=== PATIENT | female | born 1950 | race Caucasian/White ===

== ENCOUNTER 2019-02-04 16:07 | Inpatient (IN) | payer MEDICARE, MEDICAID ==
[~2019-02-04] VITALS: Ht 154.9 cm; Wt 67.1 kg
--- NOTE | 2019-02-04 15:24 | NUR ---
ED Nurse Note: pt's brother [phone]
[2019-02-04 15:25] VITALS: BP 105/58
--- NOTE | 2019-02-04 15:25 | NUR ---
ED Nurse Note: pt brought in to ER from doctor's office due to N/V and RUQ pain 12/25. pt aao x4 and ambulatory. skin clean and intact. calm and cooperative. pt is on shoulder boner and in gown. no acute distress noted.
--- NOTE | 2019-02-04 15:39 | Emergency Room Report ---
History of Present Illness General Chief Complaint: Abdominal Pain Source: Patient, Medical Record, EMS Present Illness HPI 68-year-old female presents with sharp abdominal pain that started 1 day prior to arrival, localized to the right lower quadrant no aggravating or alleviating factors, severity is severe, pain has been constant, and vomiting. No diarrhea , no chest pain no shortness of breath, patient presents for evaluation. Allergies: Coded Allergies: No Known Allergies (Unverified , 02/04/19) Patient History Past Medical History: see triage record Now: No Reviewed Nursing Documentation: PMH: Agreed; PSxH: Agreed Nursing Documentation-PMH Past Medical History: No History, Except For Review of Systems All Other Systems: negative except mentioned in HPI Physical Exam Vital Signs Date Time Temp Pulse Resp B/P (MAP) Pulse Ox O2 Delivery O2 Flow Rate FiO2 02/04/19 15:00 101.8 105 20 104/65 (78) 98 Room Air Sp02 EP Interpretation: reviewed, normal General Appearance: alert, moderate distress Head: normocephalic, atraumatic Eyes: bilateral eye PERRL, bilateral eye EOMI ENT: uvula midline, moist mucus membranes Neck: supple, thyroid normal, supple/symm/no masses Respiratory: lungs clear, no respiratory distress, no retraction, no accessory muscle use Cardiovascular #1: normal peripheral pulses, no edema, no gallop, no murmur, tachycardia Gastrointestinal: non tender, tenderness - Lower quadrant pain Musculoskeletal: normal inspection Neurologic: alert, oriented x3 Psychiatric: mood/affect normal Skin: no rash, warm/dry Procedures Critical Care Time Critical Care Time Given the critical condition in which the patient arrived, the patient was immediately assessed by myself and the nurse, and cardiac monitoring initiated due to the potential for rapid decompensation of the patient's clinical condition. During the course of the patient's stay, I spent a considerable amount of time at the bedside performing serial re-evaluations of the patient's hemodynamic and clinical status because of the recognized potential threat to life or limb in this condition. I then had a chance to review not only all of the available current laboratory and radiographic studies obtained today, but I also reviewed old records available to me at the time. Additionally, any ancillary information available including acquisition specialist records were reviewed. Sequential vital signs were obtained. Critical Care time of 34 minutes was performed exclusive of billable procedures. Patient required an resuscitation with 1 L of fluid, patient needed fever control pain control, patient also need a CT scan, patient found to have an ascending urinary tract infection, vitals normalized with interventions in the ED Medical Decision Making Diagnostic Impression: Primary Impression: Pyelonephritis Additional Impressions: Tachycardia Sepsis Qualified Codes: A41.9 - Sepsis, unspecified organism ER Course 68-year-old female presents with fever chills, tachycardia concerning for sepsis , on the differential includes sepsis, pyelonephritis, UTI, diverticulitis, appendicitis Patient found to have right lower quadrant pain, patient was tender to palpation Ceftriaxone was given patient was at risk of deterioration with overwhelming sepsis, patient was resuscitated, patient with pyelonephritis, will admit patient for IV antibiotics, Reevaluation 4:48 PM, patient tachycardia slowly improving Reevaluation 5:30 PM, patient's tachycardia has resolved with fluid administration fever control, and antibiotics Patient was endorsed to Dr. Villeda Laboratory Tests Test 02/04/19 15:40 White Blood Count 10.4 K/UL (4.8-10.8) Red Blood Count 4.04 M/UL (4.20-5.40) L Hemoglobin 12.5 G/DL (12.0-16.0) Hematocrit 36.2 % (37.0-47.0) L Mean Corpuscular Volume 90 FL (80-99) Mean Corpuscular Hemoglobin 30.9 PG (27.0-31.0) Mean Corpuscular Hemoglobin Concent 34.5 G/DL (32.0-36.0) Red Cell Distribution Width 9.9 % (11.6-14.8) L Platelet Count 188 K/UL (150-450) Mean Platelet Volume 6.2 FL (6.5-10.1) L Neutrophils (%) (Auto) 88.3 % (45.0-75.0) H Lymphocytes (%) (Auto) 7.0 % (20.0-45.0) L Monocytes (%) (Auto) 4.3 % (1.0-10.0) Eosinophils (%) (Auto) 0.0 % (0.0-3.0) Basophils (%) (Auto) 0.3 % (0.0-2.0) Urine Color Pale yellow Urine Appearance Cloudy Urine pH 7 (4.5-8.0) Urine Specific [place] 1.005 (1.005-1.035) Urine Protein 2+ (NEGATIVE) H Urine Glucose (UA) Negative (NEGATIVE) Urine Ketones Negative (NEGATIVE) Urine Blood 4+ (NEGATIVE) H Urine Nitrite Positive (NEGATIVE) H Urine Bilirubin Negative (NEGATIVE) Urine Urobilinogen Normal MG/DL (0.0-1.0) Urine Leukocyte Esterase 3+ (NEGATIVE) H Urine RBC Pending Urine WBC Pending Urine Squamous Epithelial Cells Pending Urine Bacteria Pending Sodium Level 136 MMOL/L (136-145) Potassium Level 3.6 MMOL/L (3.5-5.1) Chloride Level 102 MMOL/L (98-107) Carbon Dioxide Level 24 MMOL/L (21-32) Anion Gap 11 mmol/L (5-15) Blood Urea Nitrogen 21 mg/dL (7-18) H Creatinine 0.8 MG/DL (0.55-1.30) Estimate Glomerular Filtration Rate > 60 mL/min (>60) Glucose Level 123 MG/DL (74-106) H Lactic Acid Level 0.90 mmol/L (0.4-2.0) Calcium Level 9.0 MG/DL (8.5-10.1) Total Bilirubin 0.5 MG/DL (0.2-1.0) Aspartate Amino Transferase (AST) 33 U/L (15-37) Alanine Aminotransferase (ALT) 28 U/L (12-78) Alkaline Phosphatase 102 U/L (46-116) Troponin I 0.000 ng/mL (0.000-0.056) Total Protein 6.7 G/DL (6.4-8.2) Albumin 3.9 G/DL (3.4-5.0) Globulin 2.8 g/dL Albumin/Globulin Ratio 1.4 (1.0-2.7) Lipase 112 U/L (73-393) EKG Diagnostic Results EKG Time: 15:25 EP Interpretation: Sinus tachycardia, rate 110, QTc 400, no acute ST elevations , normal axis Rate: tachycardiac Rhythm: other - Sinus tachycardia ST Segments: no acute changes Rhythm Strip Diag. Results Rhythm Strip Time: 16:01 EP Interpretation: yes Rate: 111 Rhythm: other - Tachycardia, no PVCs no ectopy Chest X-Ray Diagnostic Results Chest X-Ray Diagnostic Results : Chest X-Ray Ordered: Yes # of Views/Limited/Complete: 1 View Indication: Other - preop EP Interpretation: Yes Interpretation: no consolidation, no effusion, no pneumothorax, no acute cardiopulmonary disease Impression: No acute disease Electronically Signed by: Jony Roper MD CT/MRI/US Diagnostic Results CT/MRI/US Diagnostic Results : Impression Procedure: CT Abdomen Pelvis w/Contrast Clinical Indication: . Abdominal pain in the right lower quadrant started one day prior to arrival, severe Technique: No oral contrast utilized, per emergency room physician request IV administration nonionic contrast. Venous phase spiral acquisition obtained through the abdomen and pelvis. Multiplanar reconstructions were generated. Total dose length product 570.53 mGycm. CTDIvol(s) 12.33 mGy. Dose reduction achieved using automated exposure control Comparison: none Findings: Lack of enteric contrast limits assessment of the GI tract. The appendix is normal. There is no evidence of diverticulosis or diverticulitis. No small bowel distention. No free or loculated intraperitoneal gas or fluid is evident. The distal esophagus, stomach, duodenum are unremarkable. There is slightly heterogeneous contrast opacification of the upper pole of the right kidney. In addition, there is slight enhancement of the urothelium of the right renal pelvis and right ureter. The left kidney demonstrates a few low-attenuation lesions which are too small to characterize. No renal or ureteral calculi. The bladder is unremarkable. The liver, gallbladder, bile ducts, pancreas, spleen, adrenals are unremarkable. No retroperitoneal or mesenteric mass or adenopathy. No pelvic mass or adenopathy. The uterus is not visualized, presumed surgically absent. The bones are unremarkable. The included lung bases demonstrate posterior dependent atelectatic changes Impression: Somewhat striking enhancement of the right renal pelvic and proximal ureteral urothelium, suspicious for pyelitis/ureteritis. Slightly heterogeneous contrast opacification of the upper pole of the right kidney indicate a component of focal nephritis as well. Correlate with clinical and laboratory findings. Limited assessment of the GI tract, due to lack of enteric contrast administration. No gross acute GI pathology Evidence of prior hysterectomy Incidental findings as noted The CT scanner at [facility] is accredited by the [employer] and the scans are performed using protocols designed to limit radiation exposure to as low as reasonably achievable to attain images of sufficient resolution adequate for diagnostic evaluation. Last Vital Signs Date Time Temp Pulse Resp B/P (MAP) Pulse Ox O2 Delivery O2 Flow Rate FiO2 02/04/19 15:25 110 20 Room Air 02/04/19 15:25 101.8 105/58 98 Disposition: ADMITTED INPATIENT Condition: Stable Jony Roper MD Feb 04, 2019 15:39
--- NOTE | 2019-02-04 15:48 | NUR ---
ED Nurse Note: x-ray at bedside.
[~2019-02-04 16:07] MED LIST: Isovue-300 100ml vial INJ PRN; Ketorolac 30mg Inj IV ONE; LIVALO4 MG PO; MOBIC7.5 MG ORAL; Morphine Sulfate 4mg/ml Inj (IV USE ONLY) IVP ONE; XANAX0.5 MG ORAL
[2019-02-04] MEDS ORDERED: Piperacillin/Tazobactam 4.5 GM in NS 110 ML IVPB ONE (16:15)
[2019-02-04 16:16] LABS: BASOPHILS % (AUTO) 0.3 % (0.0-2.0); HEMATOCRIT 36.2 % (37.0-47.0); HEMOGLOBIN 12.5 G/DL (12.0-16.0); MEAN CORPUSCULAR VOLUME 90 FL (80-99); MONOCYTES % (AUTO) 4.3 % (1.0-10.0); NEUTROPHILS % (AUTO) 88.3 % (45.0-75.0); PLATELET COUNT 188 K/UL (150-450); RED BLOOD COUNT 4.04 M/UL (4.20-5.40); RED CELL DISTRIBUTION WIDTH 9.9 % (11.6-14.8); WHITE BLOOD COUNT 10.4 K/UL (4.8-10.8)
[2019-02-04 16:26] LABS: ANION GAP 11 mmol/L (5-15); BLOOD UREA NITROGEN 21 mg/dL (7-18); CARBON DIOXIDE 24 MMOL/L (21-32); CHLORIDE 102 MMOL/L (98-107); CREATININE 0.8 MG/DL (0.55-1.30); POTASSIUM 3.6 MMOL/L (3.5-5.1); SODIUM 136 MMOL/L (136-145)
[2019-02-04 16:29] LABS: ALANINE AMINOTRANSFERASE 28 U/L (12-78); ALBUMIN 3.9 G/DL (3.4-5.0); ALBUMIN/GLOBULIN RATIO 1.4 (1.0-2.7); ALKALINE PHOSPHATASE 102 U/L (46-116); ASPARTATE AMINO TRANSFERASE 33 U/L (15-37); BILIRUBIN,TOTAL 0.5 MG/DL (0.2-1.0)
--- NOTE | 2019-02-04 16:39 | NUR ---
ED Nurse Note: pt went down for CT scan in stable condition.
--- NOTE | 2019-02-04 16:39 | Diagnostic Imaging Report ---
Indication: Chest Technique: One view of the chest Comparison: none Findings: There is some left suprahilar atelectasis or scarring and possibly some focal patchy consolidation. The lungs and pleural spaces are otherwise clear. The heart size is normal Impression: Left suprahilar atelectasis, scarring, and/or focal consolidation
--- NOTE | 2019-02-04 16:54 | NUR ---
ED Nurse Note: pt came back from CT scan in stable condition.
--- NOTE | 2019-02-04 17:13 | Diagnostic Imaging Report ---
Clinical Indication: . Abdominal pain in the right lower quadrant started one day prior to arrival, severe Technique: No oral contrast utilized, per emergency room physician request IV administration nonionic contrast. Venous phase spiral acquisition obtained through the abdomen and pelvis. Multiplanar reconstructions were generated. Total dose length product 570.53 mGycm. CTDIvol(s) 12.33 mGy. Dose reduction achieved using automated exposure control Comparison: none Findings: Lack of enteric contrast limits assessment of the GI tract. The appendix is normal. There is no evidence of diverticulosis or diverticulitis. No small bowel distention. No free or loculated intraperitoneal gas or fluid is evident. The distal esophagus, stomach, duodenum are unremarkable. There is slightly heterogeneous contrast opacification of the upper pole of the right kidney. In addition, there is slight enhancement of the urothelium of the right renal pelvis and right ureter. The left kidney demonstrates a few low-attenuation lesions which are too small to characterize. No renal or ureteral calculi. The bladder is unremarkable. The liver, gallbladder, bile ducts, pancreas, spleen, adrenals are unremarkable. No retroperitoneal or mesenteric mass or adenopathy. No pelvic mass or adenopathy. The uterus is not visualized, presumed surgically absent. The bones are unremarkable. The included lung bases demonstrate posterior dependent atelectatic changes Impression: Somewhat striking enhancement of the right renal pelvic and proximal ureteral urothelium, suspicious for pyelitis/ureteritis. Slightly heterogeneous contrast opacification of the upper pole of the right kidney indicate a component of focal nephritis as well. Correlate with clinical and laboratory findings. Limited assessment of the GI tract, due to lack of enteric contrast administration. No gross acute GI pathology Evidence of prior hysterectomy Incidental findings as noted The CT scanner at [facility] is accredited by the [employer] and the scans are performed using protocols designed to limit radiation exposure to as low as reasonably achievable to attain images of sufficient resolution adequate for diagnostic evaluation.
[2019-02-04] MEDS ORDERED: cefTRIAXone 1 GM in NS 55 ML IVPB ONE (17:30)
[2019-02-04 17:42] LABS: APPEARANCE,URINE CLOUDY; BILIRUBIN, URINE NEGATIVE (NEGATIVE); COLOR,URINE PALE YELLOW; GLUCOSE, URINE (UA) NEGATIVE (NEGATIVE); KETONES,URINE NEGATIVE (NEGATIVE); LEUKOCYTE ESTERASE ,URINE 3+ (NEGATIVE); NITRITE,URINE POSITIVE (NEGATIVE); PH,URINE 7 (4.5-8.0); PROTEIN,URINE 2+ (NEGATIVE); UROBILINOGEN,URINE NORMAL MG/DL (0.0-1.0)
--- NOTE | 2019-02-04 17:45 | NUR ---
ED Nurse Note: Report given to OPAL Kent. Addendum: 02/04/19 at 1750 by [email or web address] ED Nurse Note: Report given to OPAL Pelaez.
[2019-02-04 17:54] VITALS: BP 112/65
--- NOTE | 2019-02-04 18:10 | NUR ---
ED Nurse Note: pt left unit with 1 instructor adjunct surgical technician in stable condition.
[2019-02-04] MEDS ORDERED: HYDROcodone/Acetamin 5/325 tab ORAL PRN (18:30)
--- NOTE | 2019-02-04 18:34 | History & Physical ---
History of Present Illness General Date patient seen: Feb 04, 2019 Time patient seen: 05:45 Reason for Hospitalization: Abdominal Pain Present Illness Allergies: Coded Allergies: No Known Allergies (Unverified , 02/04/19) Medication History Scheduled Alprazolam* (Xanax*), 0.5 MG ORAL DAILY, (Reported) Meloxicam* (Mobic*), 7.5 MG ORAL DAILY, (Reported) Pitavastatin Calcium (Livalo), 4 MG PO HS, (Reported) Patient History Healthcare decision maker Resuscitation status Advanced Directive on File Review of Systems Review of Symptoms General ROS: no weight loss or fever Psychological ROS: no depression or mood changes, no memory loss Ophthalmic ROS: no visual changes or eye irritation ENT ROS: no nasal congestion, hearing loss, dizziness Allergy and Immunology ROS: no allergic symptoms or urticaria Hematological and Lymphatic ROS: no swollen glands, unusual bleeding or bruising Endocrine ROS: no polyuria, polydipsia, weight changes, temperature intolerance Respiratory ROS: no cough, shortness of breath, or wheezing Cardiovascular ROS: no chest pain or dyspnea on exertion Gastrointestinal ROS: denies abdominal pain, bright red blood in stool. Musculoskeletal ROS: no myalgias or arthralgias Neurological ROS: no TIA or stroke symptoms Dermatological ROS: no new or changing skin lesions, rashes or pruritis Physical Exam Physical Exam General appearance: alert, cooperative, no distress, appears stated age Head: Normocephalic, without obvious abnormality, atraumatic Eyes: conjunctivae/corneas clear. PERRL, EOM's intact. Fundi benign Throat: Lips, mucosa, and tongue normal. Teeth and gums normal Neck: supple, symmetrical, trachea midline, no adenopathy, thyroid: not enlarged, symmetric, no tenderness/mass/nodules, no carotid bruit and no JVD Lungs: clear to auscultation bilaterally Heart: regular rate and rhythm, S1, S2 normal, no murmur, click, rub or gallop Abdomen: soft, non-tender. Bowel sounds normal. No masses, no organomegaly Extremities: extremities normal, atraumatic, no cyanosis or edema Pulses: 2+ and symmetric Skin: Skin color, texture, turgor normal. No rashes or lesions Neurologic: Grossly normal Last 24 Hour Vital Signs Date Time Temp Pulse Resp B/P (MAP) Pulse Ox O2 Delivery O2 Flow Rate FiO2 02/04/19 17:54 100.3 103 20 112/65 98 Room Air 02/04/19 16:16 101.8 02/04/19 16:16 101.8 02/04/19 15:25 110 20 Room Air 02/04/19 15:25 101.8 110 20 105/58 98 Room Air 02/04/19 15:00 101.8 105 20 104/65 (78) 98 Room Air Laboratory Tests Test 02/04/19 15:40 White Blood Count 10.4 K/UL (4.8-10.8) Red Blood Count 4.04 M/UL (4.20-5.40) L Hemoglobin 12.5 G/DL (12.0-16.0) Hematocrit 36.2 % (37.0-47.0) L Mean Corpuscular Volume 90 FL (80-99) Mean Corpuscular Hemoglobin 30.9 PG (27.0-31.0) Mean Corpuscular Hemoglobin Concent 34.5 G/DL (32.0-36.0) Red Cell Distribution Width 9.9 % (11.6-14.8) L Platelet Count 188 K/UL (150-450) Mean Platelet Volume 6.2 FL (6.5-10.1) L Neutrophils (%) (Auto) 88.3 % (45.0-75.0) H Lymphocytes (%) (Auto) 7.0 % (20.0-45.0) L Monocytes (%) (Auto) 4.3 % (1.0-10.0) Eosinophils (%) (Auto) 0.0 % (0.0-3.0) Basophils (%) (Auto) 0.3 % (0.0-2.0) Urine Color Pale yellow Urine Appearance Cloudy Urine pH 7 (4.5-8.0) Urine Specific [place] 1.005 (1.005-1.035) Urine Protein 2+ (NEGATIVE) H Urine Glucose (UA) Negative (NEGATIVE) Urine Ketones Negative (NEGATIVE) Urine Blood 4+ (NEGATIVE) H Urine Nitrite Positive (NEGATIVE) H Urine Bilirubin Negative (NEGATIVE) Urine Urobilinogen Normal MG/DL (0.0-1.0) Urine Leukocyte Esterase 3+ (NEGATIVE) H Urine RBC 2-4 /HPF (0 - 2) H Urine WBC Tntc /HPF (0 - 2) H Urine Squamous Epithelial Cells Few /LPF (NONE/OCC) Urine Bacteria Many /HPF (NONE) H Sodium Level 136 MMOL/L (136-145) Potassium Level 3.6 MMOL/L (3.5-5.1) Chloride Level 102 MMOL/L (98-107) Carbon Dioxide Level 24 MMOL/L (21-32) Anion Gap 11 mmol/L (5-15) Blood Urea Nitrogen 21 mg/dL (7-18) H Creatinine 0.8 MG/DL (0.55-1.30) Estimat Glomerular Filtration Rate > 60 mL/min (>60) Glucose Level 123 MG/DL (74-106) H Lactic Acid Level 0.90 mmol/L (0.4-2.0) Calcium Level 9.0 MG/DL (8.5-10.1) Total Bilirubin 0.5 MG/DL (0.2-1.0) Aspartate Amino Transf (AST/SGOT) 33 U/L (15-37) Alanine Aminotransferase (ALT/SGPT) 28 U/L (12-78) Alkaline Phosphatase 102 U/L (46-116) Troponin I 0.000 ng/mL (0.000-0.056) Total Protein 6.7 G/DL (6.4-8.2) Albumin 3.9 G/DL (3.4-5.0) Globulin 2.8 g/dL Albumin/Globulin Ratio 1.4 (1.0-2.7) Lipase 112 U/L (73-393) Height (Feet): 5 Height (Inches): 1.00 Weight (Pounds): 150 Medications Current Medications Medications (Trade) Dose Ordered Sig/Cristy Route PRN Reason Start Time Stop Time Status Last Admin Dose Admin Acetaminophen (Tylenol) 650 mg Q6H PRN ORAL Mild Pain/Temp > 100.5 02/04/19 18:30 03/06/19 18:29 UNV Acetaminophen/ Hydrocodone Bitart ([place] 5/325) 1 tab Q6H PRN ORAL For severe Pain 02/04/19 18:30 02/11/19 18:29 UNV Ceftriaxone Sodium 1 gm/ Dextrose 55 ml @ 110 mls/hr Q24H IVPB 02/04/19 18:30 02/11/19 18:29 UNV Iopamidol (Isovue-300 100ml) 100 ml NOW PRN INJ Radiology Procedure 02/04/19 15:30 Ondansetron HCl (Zofran) 4 mg Q6H PRN IVP Nausea & Vomiting 02/04/19 18:30 03/06/19 18:29 UNV Sodium Chloride 1,000 ml @ 50 mls/hr Q20H IV 02/04/19 18:30 03/06/19 18:29 UNV Sodium Chloride 1,000 ml @ 100 mls/hr Q10H ONCE IV 02/04/19 15:21 02/05/19 01:20 02/04/19 15:46 Assessment/Plan Assessment/Plan: Full H&P was dictated. [facility] Hospital declaration INPATIENT level of care is warranted for this patient because patient is a 89 year old with who presents with suspicion of . I have a high level of concern because . Patient is at high risk for . Plan of care/treatment include . Patient care is expected to be greater than 2 midnights. OBSERVATION level of care is warranted for this patient. Patient is a 89 year old with who presents with . Patient will be admitted for 1 midnight, but if additional night(s) is/are necessary, patient will be converted to inpatient status for the entire hospitalization Disposition: Once the patient is stable to leave the hospital, I anticipate the patient will likely be discharged to the following environment: Estimated discharge date: I spent 70 minutes on this patient's case, and minutes was dedicated to counseling and/or care coordination. MIPS (Merit-based Incentive Payment System) Applicable CPT: 94803, 47093 CHECK ALL THAT ARE MET: Measure #5 (CHF): All ages. Prescribe BILL/ARB upon discharge for patients with left ventricular systolic dysfunction. If not, the reason is clearly documented in the medical chart. Measure #8 (CHF): All ages. Prescribe a beta ramon upon discharge for patients with left ventricular systolic dysfunction. If not, the reason is clearly documented in the medical chart. Measure #47 Advance care plan or surrogate decision maker documented in the medical record. Measure #130 The provider has documented, updated, or reviewed the patients current medication list and has documented it in the patients note. Measure #374 (All): Send report to referring provider. Measure #407(Sepsis due to MSSA bacteremia): Age 18+ Patient treated with a beta-lactam antibiotic (Nafcillin, Oxacillin or Cefazolin) as definitive therapy. MEDICAL COMPLEXITY High complexity medical decision making (need 2/3 categories) Problem - need 4 points Acute/new problem with new plan for workup (4 points, 1 max) Acute/new problem without additional workup (3 points, 1 max) Unstable chronic problem actively being managed (2 point each, 2 max) Stable chronic problem actively being managed (1 point each, 2 max) Self-limited/transient process (constipation, muscle ache, etc) (1 point each , 2 max) Data - need 4 points Reviewed labs/imaging studies (1 points, 2 max) Independent review of imaging (EKG, xrays, etc) (2 points, 2 max) Discussed case with consult/other MD/RN (2 points, 2 max) High Risk - qualify if have one of the following: Severe exacerbation of acute problem, acute mental status change, IV narcotics , monitoring drug levels (vancomycin, INR, tacrolimus etc) Lucille Cantor MD Feb 04, 2019 18:34
--- NOTE | 2019-02-04 18:40 | NUR ---
NURSE NOTES: NOTED PATIENT IN ROOM FROM ER DEPT. NO ER EMPLOYEE ON FLOOR TO HANDOFF PATIENT. PT. IN BED. AOX4. BELONGINGS LIST VERIFIED WITH PATIENT AND TOWBOAT PILOT. PATIENT DENIES PAIN/ ORIENTED TO ROOM. BED IN LOW AND LOCKED POSITION. CALL LIGHT WITHIN REACH.
--- NOTE | 2019-02-04 19:40 | NUR ---
HAND-OFF: Report given to MACHELLE AVILEZ RN.
--- NOTE | 2019-02-04 19:41 | NUR ---
NURSE NOTES: Received report & pt from OPAL Pelaez. Pt lying in bed, a&ox4, in room air. No s/s of acute distress & no c/o pain at this time. MD already put in admission orders per AM shift nurse. Skin intact. IV site intact & S/L'd. Bed in lowest position, call light within reach. Will continue to monitor.
[2019-02-04 20:00] VITALS: BP 93/59
--- NOTE | 2019-02-04 20:00 | History and Physical Report ---
DATE OF ADMISSION: 02/04/2019 CHIEF COMPLAINT: Abdominal pain with nausea and vomiting. HISTORY OF PRESENT ILLNESS: This is a 68-year-old female with complaint of severe right-sided abdominal pain with epigastric pain, nausea, and vomiting for the past 1 or 2 days. The patient also has been having high fever as well. The patient was seen in my office and automotive porter was called in to bring the patient in for inpatient evaluation. In the emergency room, the patient was noticed to have a fever of 101.8 and her workup showed CT was consistent with possible pyelonephritis. UA was also showed nitrite positive. The patient was also tachycardic on admission on evaluation in the emergency room. The patient received IV fluids and Rocephin with pain medication, morphine while in the emergency room. PAST MEDICAL HISTORY: Includes history of hyperlipidemia, chronic low back pain with lumbar disk disease, cervical disk disease, history of hyperthyroidism, currently euthyroid, and history of anxiety. PAST SURGICAL HISTORY: Total abdominal hysterectomy. FAMILY HISTORY: Mother with Alzheimer disease. SOCIAL HISTORY: No smoking. No alcohol use. No IV drug use. ALLERGIES: No known drug allergies. MEDICATIONS: She is on Livalo 4 mg at bedtime, Mobic 7.5 mg daily p.r.n., and Xanax 0.5 daily p.r.n. REVIEW OF SYSTEMS: Negative except for HPI. PHYSICAL EXAMINATION: VITAL SIGNS: Temperature 101.8, pulse 105, respirations 20, blood pressure 104/65, pulse ox 98% on room air. GENERAL APPEARANCE: In distress with abdominal pain and slightly tachycardic. HEENT: Normocephalic and normochromic. Extraocular muscles intact. Throat is clear. LUNGS: Clear to auscultation bilaterally. CARDIOVASCULAR: Regular rhythm, but tachycardic. No murmur. No gallop. ABDOMEN: Soft. Positive tenderness on the suprapubic area and right lower quadrant. Negative guarding. No rebound. Positive bowel sounds. EXTREMITIES: No edema, cyanosis, or clubbing. NEUROLOGIC: Respond to commands. No gross motor or sensory deficits. LABORATORY AND DIAGNOSTIC DATA: Include WBC 10.4, hemoglobin 12.5, hematocrit 36.2, platelet count 188, MCV 90, neutrophils 88, lymphocytes 7. Sodium 136, potassium 3.6, chloride 102, bicarbonate 24, BUN 21, creatinine 0.8, glucose 123. Lactic acid is 0.9. Calcium is 9. Total bilirubin 0.5, AST 33, ALT 28, alkaline phosphatase 102. Troponin 0. Albumin is 3.9. Lipase 112. UA showed positive nitrate, +4 blood, +2 protein, urine rbc 2 to 4, urine wbc too many to count, epithelial cells few, urine bacteria is many. IMAGING: CT of the abdomen and pelvis showed right renal pelvic and proximal urethral urothelium suspicious for pyelitis and urethritis and then slightly heterogeneous contrast opacification of the upper pole of the right kidney, possible focal nephritis and evidence of prior hysterectomy. Chest x-ray showed left suprahilar atelectasis. IMPRESSION: 1. Pyelonephritis. We will continue Rocephin 1 g IV daily and follow urine culture. 2. Questionable sepsis. We will continue the IV antibiotic and monitor the patient, but sepsis is less likely. Follow blood cultures. The patient will be admitted for minimum of 2-night stay for IV antibiotic and we will follow the urine culture. Lucille Cantor M.D. DR: SHANE JOB#: [id number] CC: [facility]
[2019-02-05] VITALS: BP 95/60
[2019-02-05 04:00] VITALS: BP 90/54
[2019-02-05 06:21] LABS: BASOPHILS % (AUTO) 0.4 % (0.0-2.0); EOSINOPHILS % (AUTO) 0.6 % (0.0-3.0); HEMATOCRIT 33.6 % (37.0-47.0); HEMOGLOBIN 11.2 G/DL (12.0-16.0); LYMPHOCYTES % (AUTO) 20.4 % (20.0-45.0); MEAN CORPUSCULAR VOLUME 94 FL (80-99); MONOCYTES % (AUTO) 7.5 % (1.0-10.0); NEUTROPHILS % (AUTO) 71.1 % (45.0-75.0); PLATELET COUNT 172 K/UL (150-450); RED BLOOD COUNT 3.57 M/UL (4.20-5.40); RED CELL DISTRIBUTION WIDTH 10.6 % (11.6-14.8); WHITE BLOOD COUNT 7.8 K/UL (4.8-10.8)
[2019-02-05 06:51] LABS: ANION GAP 7 mmol/L (5-15); BLOOD UREA NITROGEN 17 mg/dL (7-18); CALCIUM 8.8 MG/DL (8.5-10.1); CARBON DIOXIDE 26 MMOL/L (21-32); CHLORIDE 106 MMOL/L (98-107); CREATININE 0.9 MG/DL (0.55-1.30); POTASSIUM 3.9 MMOL/L (3.5-5.1); SODIUM 139 MMOL/L (136-145)
--- NOTE | 2019-02-05 07:30 | NUR ---
HAND-OFF: Report given to OPAL Gan. Pt in stable condition. Rounds done.
--- NOTE | 2019-02-05 07:55 | NUR ---
NURSE NOTES: Patient received in stable condition, resting in bed, eating breakfast. Alert and oriented x4, responds appropriately. Breathing even and unlabored on room air. Denies pain at this time. IV site on right arm patent and intact, with fluids running at 50cc/hr. Bed locked in lowest position, call light placed within reach. Will continue to monitor.
[2019-02-05 08:00] VITALS: BP 91/49
--- NOTE | 2019-02-05 09:02 | General Progress Note ---
Assessment/Plan Status: stable Assessment/Plan: 1. Pyelonephritis - improving. cont IV Rocephin. D/C IVF. 2. Anxiety and Insomnia- cont xanax 0.5 mg one po qhs prn. 3. Hyperlipidemia - will restart home med after discharge. 4. Questionable Sepsis - Doing better and sepsis unlikly. Subjective Date patient seen: Feb 05, 2019 Time patient seen: 08:45 Constitutional: Reports: no symptoms HEENT: Reports: no symptoms Cardiovascular: Reports: no symptoms Respiratory: Reports: no symptoms Gastrointestinal/Abdominal: Reports: no symptoms Genitourinary: Reports: burning Neurologic/Psychiatric: Reports: no symptoms Endocrine: Reports: no symptoms Hematologic/Lymphatic: Reports: no symptoms Allergies: Coded Allergies: No Known Allergies (Unverified , 02/04/19) Subjective This morning she is better. no fever or chills. no sob or chest pain. No nausea or vomiting. she still has slight dysuria. Objective Last 24 Hour Vital Signs Date Time Temp Pulse Resp B/P (MAP) Pulse Ox O2 Delivery O2 Flow Rate FiO2 02/05/19 08:00 97.5 85 18 91/49 (63) 97 02/05/19 04:00 97.8 78 16 90/54 (66) 96 02/05/19 00:00 97.9 97 17 95/60 (72) 97 02/04/19 20:00 Room Air 02/04/19 20:00 97.6 96 18 93/59 (70) 97 02/04/19 18:10 100.3 103 20 112/65 98 Room Air 02/04/19 17:54 100.3 103 20 112/65 98 Room Air 02/04/19 16:16 101.8 02/04/19 16:16 101.8 02/04/19 15:25 110 20 Room Air 02/04/19 15:25 101.8 110 20 105/58 98 Room Air 02/04/19 15:00 101.8 105 20 104/65 (78) 98 Room Air Intake and Output 02/04/19 02/05/19 18:59 06:59 Intake Total 365 ml 740 ml Balance 365 ml 740 ml Intake Oral 0 ml 240 ml IV Total 365 ml 500 ml # Voids 1 Laboratory Tests 02/04/19 15:40: White Blood Count 10.4, Red Blood Count 4.04L, Hemoglobin 12.5, Hematocrit 36.2L , Mean Corpuscular Volume 90, Mean Corpuscular Hemoglobin 30.9, Mean Corpuscular Hemoglobin Concent 34.5, Red Cell Distribution Width 9.9L, Platelet Count 188, Mean Platelet Volume 6.2L, Neutrophils (%) (Auto) 88.3H, Lymphocytes (%) (Auto) 7.0L, Monocytes (%) (Auto) 4.3, Eosinophils (%) (Auto) 0.0, Basophils (%) (Auto) 0.3, Urine Color Pale yellow, Urine Appearance Cloudy, Urine pH 7, Urine Specific [place] 1.005, Urine Protein 2+H, Urine Glucose (UA) Negative, Urine Ketones Negative, Urine Blood 4+H, Urine Nitrite PositiveH, Urine Bilirubin Negative, Urine Urobilinogen Normal, Urine Leukocyte Esterase 3+ H, Urine RBC 2-4H, Urine WBC TntcH, Urine Squamous Epithelial Cells Few, Urine Bacteria ManyH, Sodium Level 136, Potassium Level 3.6, Chloride Level 102, Carbon Dioxide Level 24, Anion Gap 11, Blood Urea Nitrogen 21H, Creatinine 0.8, Estimat Glomerular Filtration Rate > 60, Glucose Level 123H, Lactic Acid Level 0.90, Calcium Level 9.0, Total Bilirubin 0.5, Aspartate Amino Transf (AST/SGOT) 33, Alanine Aminotransferase (ALT/SGPT) 28, Alkaline Phosphatase 102, Troponin I 0.000, Total Protein 6.7, Albumin 3.9, Globulin 2.8, Albumin/Globulin Ratio 1.4, Lipase 112 02/05/19 05:15: White Blood Count 7.8, Red Blood Count 3.57L, Hemoglobin 11.2L, Hematocrit 33.6L , Mean Corpuscular Volume 94, Mean Corpuscular Hemoglobin 31.3H, Mean Corpuscular Hemoglobin Concent 33.3, Red Cell Distribution Width 10.6L, Platelet Count 172, Mean Platelet Volume 6.2L, Neutrophils (%) (Auto) 71.1, Lymphocytes (%) (Auto) 20.4, Monocytes (%) (Auto) 7.5, Eosinophils (%) (Auto) 0.6, Basophils (%) (Auto) 0.4, Sodium Level 139, Potassium Level 3.9, Chloride Level 106, Carbon Dioxide Level 26, Anion Gap 7, Blood Urea Nitrogen 17, Creatinine 0.9, Estimat Glomerular Filtration Rate > 60, Glucose Level 96, Calcium Level 8.8 Height (Feet): 5 Height (Inches): 1.00 Weight (Pounds): 148 General Appearance: no apparent distress, alert EENT: normal ENT inspection Neck: non-tender, supple Cardiovascular: normal rate, regular rhythm Respiratory/Chest: chest wall non-tender, lungs clear, normal breath sounds Abdomen: normal bowel sounds, non tender, soft Extremities: normal range of motion, non-tender Edema: no edema noted Arm (L), no edema noted Arm (R), no edema noted Leg (L), no edema noted Leg (R), no edema noted Pedal (L), no edema noted Pedal (R), no edema noted Generalized Neurologic: alert, oriented x 3, responsive Skin: warm/dry Lymphatic: normal anterior cervical (L), normal anterior cervical (R), normal posterior cervical (L), normal posterior cervical (R), normal submandibular (L) , normal submandibular (R), normal supraclavicular (L), normal supraclavicular ( R), normal axillary (L), normal axillary (R), normal inguinal (L), normal inguinal (R), normal other Lucille Cantor MD Feb 05, 2019 09:02
[2019-02-05 12:00] VITALS: BP 94/52
--- NOTE | 2019-02-05 12:06 | NUR ---
CASE MANAGEMENT: INITIAL REVIEW 68 YO F LUCIANO FROM DRs OFFICE TO ED CC: ABD PAIN AND BLOODY EMESIS. PMHx: prior hysterectomy SI:ABD PAIN. T 101.8 HR 105 RR 20 B/P 104/65 SATS 98% ON RA BUN 21 GLU 123 IS: ZOFRAN IV X1 PEPCID IV X1 NS BOLUS X1 MORPHINE IV X1 CT ABD Impression: Somewhat striking enhancement of the right renal pelvic and proximal ureteral urothelium, suspicious for pyelitis/ureteritis. Slightly heterogeneous contrast opacification of the upper pole of the right kidney indicate a component of focal nephritis as well PATIENT ADMITTED TO MED/SURG 02/04/2019 @ 1332 DCP: PATIENT TO BE DISCHARGED TO HOME ONCE MEDICALLY CLEARED. PLAN OF CARE: Addendum: 02/05/19 at 1628 by Minna Landrum CM [employer]
[2019-02-05] MEDS ORDERED: Lactulose 20gm/30ml UDC ORAL PRN (12:45)
[2019-02-05] MEDS ORDERED: traMADol 50mg tab ORAL PRN ×2 (15:10→15:15)
[2019-02-05 16:00] VITALS: BP 99/64
[2019-02-05] MEDS ORDERED: cefTRIAXone 1 GM in D5W 55 ML IVPB SCH (17:30)
--- NOTE | 2019-02-05 19:30 | NUR ---
NURSE NOTES: Received report & pt from OPAL Gan. Pt lying in bed, a&ox4, in room air. No s/s of acute distress & no c/o pain at this time. Skin intact. IV site intact. Bed in lowest position, call light within reach. Will continue to monitor.
--- NOTE | 2019-02-05 19:35 | NUR ---
HAND-OFF: Report given to Abdirashid JOSEPH.
[2019-02-05 20:00] VITALS: BP 123/66
[2019-02-05] MEDS: ALPRAZolam 0.5mg tab ORAL PRN (21:05)
[2019-02-06 04:00] VITALS: BP 93/50
[2019-02-06 06:42] LABS: EOSINOPHILS % (AUTO) 2.1 % (0.0-3.0); HEMATOCRIT 33.7 % (37.0-47.0); HEMOGLOBIN 10.8 G/DL (12.0-16.0); LYMPHOCYTES % (AUTO) 27.7 % (20.0-45.0); MEAN CORPUSCULAR VOLUME 95 FL (80-99); MONOCYTES % (AUTO) 10.4 % (1.0-10.0); NEUTROPHILS % (AUTO) 58.7 % (45.0-75.0); PLATELET COUNT 160 K/UL (150-450); RED BLOOD COUNT 3.56 M/UL (4.20-5.40); RED CELL DISTRIBUTION WIDTH 10.7 % (11.6-14.8); WHITE BLOOD COUNT 4.8 K/UL (4.8-10.8)
[2019-02-06 06:52] LABS: ANION GAP 8 mmol/L (5-15); BLOOD UREA NITROGEN 15 mg/dL (7-18); CALCIUM 8.7 MG/DL (8.5-10.1); CARBON DIOXIDE 24 MMOL/L (21-32); CHLORIDE 112 MMOL/L (98-107); CREATININE 0.8 MG/DL (0.55-1.30); POTASSIUM 3.8 MMOL/L (3.5-5.1); SODIUM 144 MMOL/L (136-145)
--- NOTE | 2019-02-06 07:26 | NUR ---
HAND-OFF: Report given to Charge nurseMila. Trammell in stable condition. SBAR copy given to charge nurse.
--- NOTE | 2019-02-06 07:30 | NUR ---
NURSE NOTES: Written report received from Alana JOSEPH. Rounds made. Patient resting in semi-fowlers position, in bed. Alert, oriented x4 calm. IVF (NS at 50 ml/hr) infusing to RAC, site asymptomatic. No distress on RA. No NV, denies need for pain medication. Call light in reach, bed in lowest position, will continue to monitor.
[2019-02-06 08:00] VITALS: BP 98/53
--- NOTE | 2019-02-06 09:08 | General Progress Note ---
Assessment/Plan Status: stable Assessment/Plan: 1. Pyelonephritis - improving. cont IV Rocephin and IVF for now. 2. Anxiety and Insomnia- cont xanax 0.5 mg one po qhs prn. 3. Hyperlipidemia - will restart home med after discharge. 4. Questionable Sepsis - Doing better and sepsis unlikly. 5. Nausea and vomiting 2nd to pyelonephritis - cont abx and zofran. 6. Headache and dizziness - will do open MRI as outpatient b/c patient states she can't do closed MRI. Subjective Date patient seen: Feb 06, 2019 Time patient seen: 08:40 Constitutional: Reports: no symptoms HEENT: Reports: no symptoms Cardiovascular: Reports: no symptoms Respiratory: Reports: no symptoms Gastrointestinal/Abdominal: Reports: nausea Genitourinary: Reports: no symptoms Neurologic/Psychiatric: Reports: no symptoms Endocrine: Reports: no symptoms Hematologic/Lymphatic: Reports: no symptoms Allergies: Coded Allergies: No Known Allergies (Unverified , 02/04/19) Subjective This morning she is better. no fever or chills. she had nausea and vomiting yesterday. she also has dizziness and intermittent headache. no sob or chest pain. Objective Last 24 Hour Vital Signs Date Time Temp Pulse Resp B/P (MAP) Pulse Ox O2 Delivery O2 Flow Rate FiO2 02/06/19 04:00 97.7 74 17 93/50 (64) 96 02/05/19 21:00 Room Air 02/05/19 20:00 97.9 83 17 123/66 (85) 97 02/05/19 16:00 98.0 88 17 99/64 (76) 98 02/05/19 12:00 97.6 79 18 94/52 (66) 98 Intake and Output 02/05/19 02/06/19 18:59 06:59 Intake Total 140 ml 790 ml Output Total 150 ml Balance -10 ml 790 ml Intake Oral 140 ml 240 ml IV Total 550 ml Output Emesis 150 ml # Voids 4 3 # Bowel Movements 1 Laboratory Tests 02/06/19 05:15: White Blood Count 4.8, Red Blood Count 3.56L, Hemoglobin 10.8L, Hematocrit 33.7L , Mean Corpuscular Volume 95, Mean Corpuscular Hemoglobin 30.5, Mean Corpuscular Hemoglobin Concent 32.2, Red Cell Distribution Width 10.7L, Platelet Count 160, Mean Platelet Volume 5.9L, Neutrophils (%) (Auto) 58.7, Lymphocytes (%) (Auto) 27.7, Monocytes (%) (Auto) 10.4H, Eosinophils (%) (Auto) 2.1, Basophils (%) (Auto) 1.0, Sodium Level 144, Potassium Level 3.8, Chloride Level 112H, Carbon Dioxide Level 24, Anion Gap 8, Blood Urea Nitrogen 15, Creatinine 0.8, Estimat Glomerular Filtration Rate > 60, Glucose Level 81, Calcium Level 8.7 Height (Feet): 5 Height (Inches): 1.00 Weight (Pounds): 148 General Appearance: no apparent distress, alert EENT: normal ENT inspection Neck: non-tender, supple Cardiovascular: normal peripheral pulses, normal rate, regular rhythm Respiratory/Chest: lungs clear, normal breath sounds Abdomen: normal bowel sounds, non tender, soft Extremities: non-tender Edema: no edema noted Arm (L), no edema noted Arm (R), no edema noted Leg (L), no edema noted Leg (R), no edema noted Pedal (L), no edema noted Pedal (R), no edema noted Generalized Neurologic: alert, responsive Skin: warm/dry Lymphatic: normal anterior cervical (L), normal anterior cervical (R), normal posterior cervical (L), normal posterior cervical (R), normal submandibular (L) , normal submandibular (R), normal supraclavicular (L), normal supraclavicular ( R), normal axillary (L), normal axillary (R), normal inguinal (L), normal inguinal (R), normal other Lucille Cantor MD Feb 06, 2019 09:08
--- NOTE | 2019-02-06 09:45 | NUR ---
NURSE NOTES: Patient reports she took an Aleve 220 mg one tablet from her brother who was visiting at the bedside, 5 minutes ago. RN instructed patient not to take any medication from home, only the medication that nurse is administering from MD orders, verbalized understanding. Instructed brother to take medication home or we can send down to pharmacy, patient's brother said he will take home the medication.
--- NOTE | 2019-02-06 11:14 | Diagnostic Imaging Report ---
Indication: Right flank pain, abnormal renal function tests Technique: Grayscale and duplex images of the kidneys, retroperitoneum, and bladder were obtained. Comparison: No comparison sonograms. Reference made to abdomen pelvis CT scan dated 02/04/2019 Findings: Right kidney measures 11.3 cm in length. Left kidney measures 10.4 cm in length. Both kidneys demonstrate normal echogenicity. There is mild right hydronephrosis. Punctate echogenic foci are seen within the bilateral renal sinuses. Normal inferior vena cava. Bladder is normal. Bilateral ureteral jets are demonstrated Impression: Mild right hydronephrosis. [address] to be due to pyelitis. Downstream obstructive lesion also possible, less likely given evidence of normal ureteral jets within the bladder Punctate echogenic foci within the renal sinuses. Suspected artifactual as no calculi are demonstrated on recent CT.
[2019-02-06 12:00] VITALS: BP 108/56
--- NOTE | 2019-02-06 14:00 | NUR ---
NURSE NOTES: Patient up ambulatory in halls, gait steady. Denies dizziness/lightheadedness. BRP.
--- NOTE | 2019-02-06 14:12 | Infectious Diseases Prog Note ---
Assessment/Plan Problems: (1) Acute pyelonephritis Assessment & Plan: due to E coli, continue ceftriaxone 2 gm iv q 24 hrs for now , may switch to oral keflex to finish her course of treatment for 14 days total . encourage hydration (2) Fever Assessment & Plan: due to the above, improving, continue antibiotics and tylenol as needed (3) Sepsis Assessment & Plan: due to the above , improving with negative blood culture so far (4) Nausea & vomiting Assessment & Plan: due to the above , improving, continue supportive care and nausea meds as needed Subjective Constitutional: Reports: no symptoms HEENT: Reports: no symptoms Respiratory: Reports: no symptoms Breasts: Reports: no symptoms Cardiovascular: Reports: no symptoms Gastrointestinal/Abdominal: Reports: no symptoms Genitourinary: Reports: no symptoms Neurologic: Reports: no symptoms Psychiatric: Reports: no symptoms Skin: Reports: no symptoms Endocrine: Reports: no symptoms Hematologic: Reports: no symptoms Musculoskeletal: Reports: no symptoms Allergies: Coded Allergies: No Known Allergies (Unverified , 02/04/19) Subjective she feels better today, with no significant abdominal pain, and no nausea or vomiting Objective Vital Signs Last 24 Hour Vital Signs Date Time Temp Pulse Resp B/P (MAP) Pulse Ox O2 Delivery O2 Flow Rate FiO2 02/06/19 12:00 97.7 70 20 108/56 (73) 97 02/06/19 08:00 97.7 86 19 98/53 (68) 96 02/06/19 04:00 97.7 74 17 93/50 (64) 96 02/05/19 21:00 Room Air 02/05/19 20:00 97.9 83 17 123/66 (85) 97 02/05/19 16:00 98.0 88 17 99/64 (76) 98 Height (Feet): 5 Height (Inches): 1.00 Weight (Pounds): 148 General Appearance: WD/WN, no acute distress HEENT: normocephalic, atraumatic, anicteric, mucous membranes moist, PERRL, EOMI, pharynx normal, supple, no JVD Respiratory/Chest: chest wall non-tender, lungs clear, normal breath sounds, no respiratory distress, no accessory muscle use Cardiovascular: normal peripheral pulses, normal rate, regular rhythm, no gallop/murmur, no JVD Abdomen: normal bowel sounds, soft, non tender, no organomegaly, non distended , no mass, no scars Extremities: no cyanosis, no clubbing Skin: no rash, no lesions, no ulcers Neurologic/Psychiatric: alert, oriented x 3, responsive Lymphatic: no neck adenopathy, no groin adenopathy Musculoskeletal: normal muscle bulk, no effusion Microbiology Date/Time Source Procedure Growth Status 02/04/19 15:40 Blood Blood Culture - Preliminary NO GROWTH AFTER 24 HOURS Resulted 02/04/19 15:25 Blood Blood Culture - Preliminary NO GROWTH AFTER 24 HOURS Resulted 02/04/19 15:40 Urine,Clean Catch Urine Culture - Final Escherichia Coli Complete Laboratory Tests Test 02/06/19 05:15 White Blood Count 4.8 K/UL (4.8-10.8) Red Blood Count 3.56 M/UL (4.20-5.40) L Hemoglobin 10.8 G/DL (12.0-16.0) L Hematocrit 33.7 % (37.0-47.0) L Mean Corpuscular Volume 95 FL (80-99) Mean Corpuscular Hemoglobin 30.5 PG (27.0-31.0) Mean Corpuscular Hemoglobin Concent 32.2 G/DL (32.0-36.0) Red Cell Distribution Width 10.7 % (11.6-14.8) L Platelet Count 160 K/UL (150-450) Mean Platelet Volume 5.9 FL (6.5-10.1) L Neutrophils (%) (Auto) 58.7 % (45.0-75.0) Lymphocytes (%) (Auto) 27.7 % (20.0-45.0) Monocytes (%) (Auto) 10.4 % (1.0-10.0) H Eosinophils (%) (Auto) 2.1 % (0.0-3.0) Basophils (%) (Auto) 1.0 % (0.0-2.0) Sodium Level 144 MMOL/L (136-145) Potassium Level 3.8 MMOL/L (3.5-5.1) Chloride Level 112 MMOL/L (98-107) H Carbon Dioxide Level 24 MMOL/L (21-32) Anion Gap 8 mmol/L (5-15) Blood Urea Nitrogen 15 mg/dL (7-18) Creatinine 0.8 MG/DL (0.55-1.30) Estimat Glomerular Filtration Rate > 60 mL/min (>60) Glucose Level 81 MG/DL (74-106) Calcium Level 8.7 MG/DL (8.5-10.1) Current Medications Medications (Trade) Dose Ordered Sig/Cristy Route PRN Reason Start Time Stop Time Status Last Admin Dose Admin Acetaminophen (Tylenol) 650 mg Q6H PRN ORAL Mild Pain/Temp > 100.5 02/04/19 18:30 03/06/19 18:29 02/05/19 00:53 Alprazolam (Xanax) 0.5 mg HSPRN PRN ORAL Anxiety and Insomnia 02/05/19 21:00 02/12/19 20:59 02/05/19 21:05 Ceftriaxone Sodium 2 gm/ Dextrose 55 ml @ 110 mls/hr Q24H IVPB 02/06/19 17:30 02/15/19 17:29 Iopamidol (Isovue-300 100ml) 100 ml NOW PRN INJ Radiology Procedure 02/04/19 15:30 02/06/19 15:29 Ondansetron HCl (Zofran) 4 mg Q6H PRN IVP Nausea & Vomiting 02/04/19 18:30 03/06/19 18:29 02/05/19 19:06 Sodium Chloride 1,000 ml @ 50 mls/hr Q20H IV 02/05/19 15:30 03/07/19 15:29 02/05/19 20:50 Theo Li M.D. Feb 06, 2019 14:12
--- NOTE | 2019-02-06 15:40 | NUR ---
NURSE NOTES: Patient reports that her brother did not take home the Aleve medication bottle. Patient agreed to have it sent down to pharmacy. Aleve bottle had x2 pills inside at this time, patient is aware. Pharmacy will dispense Aleve from patient's home medication bottle. Security slip in patient's chart.
[2019-02-06] MEDS ORDERED: ALEVE 220 MG ORAL PRN (15:45)
[2019-02-06 16:00] VITALS: BP 104/56
--- NOTE | 2019-02-06 16:30 | Consultation ---
DATE OF CONSULTATION: 02/05/2019 INFECTIOUS DISEASE CONSULTATION CONSULTING PHYSICIAN: Theo Li M.D. REQUESTING PHYSICIAN: Lucille Cantor M.D. REASON FOR CONSULTATION: Acute pyelonephritis with sepsis. Recommendation for antibiotics treatment and further care. HISTORY OF PRESENT ILLNESS: The patient is a 68-year-old female with past medical history of hyperlipidemia, chronic low back pain with lumbar disc disease and cervical disc disease, hyperthyroidism, and anxiety, presented to [facility] emergency room on 02/04/2019 with severe right-sided abdominal pain radiating to the epigastric area associated with nausea and vomiting for 48 hours. The patient also was running a high fever at home. The patient was seen and evaluated at her primary care physician office and paramedics were called and she was sent to the ER for evaluation. The patient was found to have fever of 101.8 CT scan of the abdomen was consistent with pyelonephritis on the right side. UA also was suggestive of infection. The patient was tachycardic and febrile concerning for sepsis. So, she was admitted to the medical floor and started on IV Rocephin and Infectious Disease consultation was requested for antibiotics treatment and guidance. REVIEW OF SYSTEMS: A 14-point of system reviewed were all negative apart from the one I mentioned above in my History and Physical. PAST MEDICAL HISTORY: Significant for hyperlipidemia, chronic low back pain, cervical disc disease, hyperthyroidism, and anxiety disorder. PAST SURGICAL HISTORY: She had total abdominal hysterectomy. MEDICATIONS: Currently, she is on ceftriaxone 1 g IV q.24 hours. For the rest of her medications, please refer to MAR. ALLERGIES: No known drug allergies. FAMILY HISTORY: Mother had Alzheimer disease, but no recurrent infection or immunocompromised condition. SOCIAL HISTORY: No smoking. No alcohol. No drugs. She lives with family. PHYSICAL EXAMINATION: VITAL SIGNS: Temperature 98, pulse 88, respirations 17, blood pressure 99/64, and saturation 98% on room air. GENERAL: A middle-aged female, up in bed, awake, alert, nauseated with abdominal pain. HEENT: Normocephalic and atraumatic. Pupils are reactive to light equally. Moist oral mucosa. No exudate. No oral thrush. NECK: Supple. No lymphadenopathy. CARDIOVASCULAR: Regular rate and rhythm. A little tachycardic. No murmur. LUNGS: Clear bilaterally. No wheezing. No rhonchi. Normal breathing efforts. ABDOMEN: Soft. Tender on the right side mainly in the right flank area with tender CVA point. No rebound. No organomegaly. No ascites. EXTREMITIES: No edema. No cyanosis. No clubbing. SKIN: No rash. No hives. No ulceration. GENITOURINARY: Normal genitalia. No warts. LABORATORY DATA: Labs showed white count of 7.8, hemoglobin of 11.2, and platelet count of 172,000. BUN of 17 and creatinine of 0.9. AST of 33 and ALT of 28. Urinalysis showed +3 leukocyte esterase, wbc too numerous to count, and many bacteria. MICROBIOLOGY: Blood culture x2 negative to date. Urine culture is growing gram-negative bacilli more than 100,000 colony. IMAGING: Chest x-ray on admission showed left suprahilar atelectases scarring or focal consolidation. Abdominal and pelvis CT scan showed striking enhancement of the right renal pelvic and proximal ureteral urothelium suspicious for ureteritis slightly heterogeneous contrast opacification of the upper pole of the right kidney indicate component of focal nephritis as well. Limited of the GI tract. ASSESSMENT AND RECOMMENDATION: 1. Acute pyelonephritis. We will increase ceftriaxone dose to 2 g IV q.24 hours to cover for pyelonephritis and possible sepsis. Pending final urine culture and blood culture. May deescalate oral antibiotics once culture result has been identified with sensitivities. The patient will need 2 weeks course of treatment with antibiotics. Encourage hydration. We will order ultrasound of the kidney to evaluate for possible ureter obstruction or nephrolithiasis. 2. Fever due to the above, improving. Continue antibiotics and Tylenol as needed. 3. Sepsis with hypotension and fever due to the above. Continue hydration with boluses. Monitor blood culture. Increase ceftriaxone dose to 2 gram daily pending final culture results. 4. Nausea and vomiting due to the above, improving. Continue supportive care and nausea medicine as needed. Encourage hydration.. Thank you for the consult. ID will continue to follow. Please feel free to call with any question. Theo Li M.D. DR: DAILY JOB#: [id number] CC:
[2019-02-06] MEDS ORDERED: cefTRIAXone 2 GM in D5W 55 ML IVPB SCH (17:30)
--- NOTE | 2019-02-06 20:00 | NUR ---
HAND-OFF: Report given to Yohana JOSEPH.
--- NOTE | 2019-02-06 20:01 | NUR ---
NURSE NOTES: Received report from OPAL Samson. Patient is in bed, awake and alertx4. On room air with no signs of distress or SOB. Right AC IV is intact and running NS @ 50 ml/hr. No c/o pain at this time. Bed is locked and in lowest position. Call light is within easy reach. Will continue to monitor the patient.
[2019-02-06] MEDS: ALPRAZolam 0.5mg tab ORAL PRN (20:51)
[2019-02-07 04:00] VITALS: BP 110/61
[2019-02-07 06:27] LABS: BASOPHILS % (AUTO) 0.7 % (0.0-2.0); HEMOGLOBIN 10.8 G/DL (12.0-16.0); LYMPHOCYTES % (AUTO) 33.8 % (20.0-45.0); MEAN CORPUSCULAR VOLUME 94 FL (80-99); MONOCYTES % (AUTO) 10.9 % (1.0-10.0); NEUTROPHILS % (AUTO) 51.6 % (45.0-75.0); PLATELET COUNT 188 K/UL (150-450); RED BLOOD COUNT 3.52 M/UL (4.20-5.40); RED CELL DISTRIBUTION WIDTH 10.4 % (11.6-14.8)
[2019-02-07 06:58] LABS: ANION GAP 8 mmol/L (5-15); BLOOD UREA NITROGEN 15 mg/dL (7-18); CALCIUM 8.7 MG/DL (8.5-10.1); CARBON DIOXIDE 24 MMOL/L (21-32); CHLORIDE 110 MMOL/L (98-107); CREATININE 0.8 MG/DL (0.55-1.30); SODIUM 142 MMOL/L (136-145)
--- NOTE | 2019-02-07 07:04 | NUR ---
NURSE NOTES: Report received from Rosita JOSEPH, rounds made. Patient resting in semi-fowlers position in bed, alert, oriented x4, calm. Denies pain (Abdominal or Headache), NV at this time. IVF NS infusing to RAC at 50 ml/hr, site asymptomatic. Encouraged PO fluid intake. Call light in reach, bed in lowest position, will continue to monitor.
--- NOTE | 2019-02-07 07:07 | NUR ---
HAND-OFF: Report given to OPAL Samson.
[2019-02-07 08:00] VITALS: BP 97/67
--- NOTE | 2019-02-07 08:57 | General Progress Note ---
Assessment/Plan Status: stable Assessment/Plan: 1. Pyelonephritis - improved. will give cipro 500 mg po bid x 11 more days at home. D/C home today. 2. Anxiety and Insomnia- cont xanax 0.5 mg one po qhs prn. 3. Hyperlipidemia - cont home med after discharge. 4. Questionable Sepsis - Doing better. 5. Nausea and vomiting 2nd to pyelonephritis - resolved. 6. Headache and dizziness - will do open MRI as outpatient b/c patient states she can't do closed MRI. Subjective Date patient seen: Feb 07, 2019 Time patient seen: 08:45 Constitutional: Reports: no symptoms HEENT: Reports: no symptoms Cardiovascular: Reports: no symptoms Respiratory: Reports: no symptoms Gastrointestinal/Abdominal: Reports: no symptoms Genitourinary: Reports: no symptoms Neurologic/Psychiatric: Reports: no symptoms Endocrine: Reports: no symptoms Hematologic/Lymphatic: Reports: no symptoms Allergies: Coded Allergies: No Known Allergies (Unverified , 02/04/19) Subjective This morning she is better. no fever or chills. she was able to tolerate food. Her dizziness resolved. no sob or chest pain. Objective Last 24 Hour Vital Signs Date Time Temp Pulse Resp B/P (MAP) Pulse Ox O2 Delivery O2 Flow Rate FiO2 02/07/19 04:00 97.7 66 18 110/61 (77) 98 02/06/19 21:00 Room Air 02/06/19 16:00 97.2 72 19 104/56 (72) 97 02/06/19 12:00 97.7 70 20 108/56 (73) 97 02/06/19 09:00 Room Air Intake and Output 02/06/19 02/07/19 18:59 06:59 Intake Total 1217 ml 840 ml Balance 1217 ml 840 ml Intake Oral 717 ml 240 ml IV Total 500 ml 600 ml # Voids 3 2 Laboratory Tests 02/07/19 05:30: White Blood Count 4.0L, Red Blood Count 3.52L, Hemoglobin 10.8L, Hematocrit 33.0L, Mean Corpuscular Volume 94, Mean Corpuscular Hemoglobin 30.7, Mean Corpuscular Hemoglobin Concent 32.8, Red Cell Distribution Width 10.4L, Platelet Count 188, Mean Platelet Volume 6.4L, Neutrophils (%) (Auto) 51.6, Lymphocytes (%) (Auto) 33.8, Monocytes (%) (Auto) 10.9H, Eosinophils (%) (Auto) 3.0, Basophils (%) (Auto) 0.7, Sodium Level 142, Potassium Level 4.0, Chloride Level 110H, Carbon Dioxide Level 24, Anion Gap 8, Blood Urea Nitrogen 15, Creatinine 0.8, Estimat Glomerular Filtration Rate > 60, Glucose Level 88, Calcium Level 8.7 Height (Feet): 5 Height (Inches): 1.00 Weight (Pounds): 148 General Appearance: alert EENT: normal ENT inspection Neck: non-tender, supple Cardiovascular: normal peripheral pulses, normal rate Respiratory/Chest: lungs clear, normal breath sounds, no respiratory distress Abdomen: non tender, soft Extremities: normal range of motion, non-tender Edema: no edema noted Arm (L), no edema noted Arm (R), no edema noted Leg (L), no edema noted Leg (R), no edema noted Pedal (L), no edema noted Pedal (R), no edema noted Generalized Neurologic: alert, responsive Skin: warm/dry Lymphatic: normal anterior cervical (L), normal anterior cervical (R), normal posterior cervical (L), normal posterior cervical (R), normal submandibular (L) , normal submandibular (R), normal supraclavicular (L), normal supraclavicular ( R), normal axillary (L), normal axillary (R), normal inguinal (L), normal inguinal (R), normal other Lucille Cantor MD Feb 07, 2019 08:57
[2019-02-07 12:00] VITALS: BP 117/62
[2019-02-07] MEDS ORDERED: CIPRO500 MG PO (13:58)
--- NOTE | 2019-02-07 14:09 | Infectious Diseases Prog Note ---
Assessment/Plan Problems: (1) Acute pyelonephritis Assessment & Plan: due to E coli, continue ceftriaxone 2 gm iv q 24 hrs for now , may switch to oral keflex to finish her course of treatment for 14 days total . encourage hydration (2) Fever Assessment & Plan: due to the above, improving, continue antibiotics and tylenol as needed (3) Sepsis Assessment & Plan: due to the above , improving with negative blood culture so far (4) Nausea & vomiting Assessment & Plan: due to the above , improving, continue supportive care and nausea meds as needed Subjective Constitutional: Reports: no symptoms HEENT: Reports: no symptoms Respiratory: Reports: no symptoms Breasts: Reports: no symptoms Cardiovascular: Reports: no symptoms Gastrointestinal/Abdominal: Reports: no symptoms Genitourinary: Reports: no symptoms Neurologic: Reports: no symptoms Psychiatric: Reports: no symptoms Skin: Reports: no symptoms Endocrine: Reports: no symptoms Hematologic: Reports: no symptoms Musculoskeletal: Reports: no symptoms Allergies: Coded Allergies: No Known Allergies (Unverified , 02/04/19) Subjective she feels better today, with no significant abdominal pain, and no nausea or vomiting Objective Vital Signs Last 24 Hour Vital Signs Date Time Temp Pulse Resp B/P (MAP) Pulse Ox O2 Delivery O2 Flow Rate FiO2 02/07/19 12:00 97.9 67 20 117/62 (80) 95 02/07/19 09:00 Room Air 02/07/19 08:00 97.8 88 18 97/67 (77) 96 02/07/19 04:00 97.7 66 18 110/61 (77) 98 02/06/19 21:00 Room Air 02/06/19 16:00 97.2 72 19 104/56 (72) 97 Height (Feet): 5 Height (Inches): 1.00 Weight (Pounds): 148 General Appearance: WD/WN, no acute distress HEENT: normocephalic, atraumatic, anicteric, mucous membranes moist, PERRL, EOMI, pharynx normal, supple, no JVD Respiratory/Chest: chest wall non-tender, lungs clear, normal breath sounds, no respiratory distress, no accessory muscle use Cardiovascular: normal peripheral pulses, normal rate, regular rhythm, no gallop/murmur, no JVD Abdomen: normal bowel sounds, soft, non tender, no organomegaly, non distended , no mass, no scars Genitourinary: normal external genitalia Extremities: no cyanosis, no clubbing Skin: no rash, no lesions, no ulcers Neurologic/Psychiatric: haul driver II-XII grossly normal, no motor/sensory deficits, alert, oriented x 3, responsive Lymphatic: no neck adenopathy, no groin adenopathy Musculoskeletal: normal muscle bulk, no effusion Microbiology Date/Time Source Procedure Growth Status 02/04/19 15:40 Blood Blood Culture - Preliminary NO GROWTH AFTER 48 HOURS Resulted 02/04/19 15:25 Blood Blood Culture - Preliminary NO GROWTH AFTER 48 HOURS Resulted 02/04/19 15:40 Urine,Clean Catch Urine Culture - Final Escherichia Coli Complete Laboratory Tests Test 02/07/19 05:30 White Blood Count 4.0 K/UL (4.8-10.8) L Red Blood Count 3.52 M/UL (4.20-5.40) L Hemoglobin 10.8 G/DL (12.0-16.0) L Hematocrit 33.0 % (37.0-47.0) L Mean Corpuscular Volume 94 FL (80-99) Mean Corpuscular Hemoglobin 30.7 PG (27.0-31.0) Mean Corpuscular Hemoglobin Concent 32.8 G/DL (32.0-36.0) Red Cell Distribution Width 10.4 % (11.6-14.8) L Platelet Count 188 K/UL (150-450) Mean Platelet Volume 6.4 FL (6.5-10.1) L Neutrophils (%) (Auto) 51.6 % (45.0-75.0) Lymphocytes (%) (Auto) 33.8 % (20.0-45.0) Monocytes (%) (Auto) 10.9 % (1.0-10.0) H Eosinophils (%) (Auto) 3.0 % (0.0-3.0) Basophils (%) (Auto) 0.7 % (0.0-2.0) Sodium Level 142 MMOL/L (136-145) Potassium Level 4.0 MMOL/L (3.5-5.1) Chloride Level 110 MMOL/L (98-107) H Carbon Dioxide Level 24 MMOL/L (21-32) Anion Gap 8 mmol/L (5-15) Blood Urea Nitrogen 15 mg/dL (7-18) Creatinine 0.8 MG/DL (0.55-1.30) Estimat Glomerular Filtration Rate > 60 mL/min (>60) Glucose Level 88 MG/DL (74-106) Calcium Level 8.7 MG/DL (8.5-10.1) Current Medications Medications (Trade) Dose Ordered Sig/Cristy Route PRN Reason Start Time Stop Time Status Last Admin Dose Admin Acetaminophen (Tylenol) 650 mg Q6H PRN ORAL Mild Pain/Temp > 100.5 02/04/19 18:30 03/06/19 18:29 02/05/19 00:53 Alprazolam (Xanax) 0.5 mg HSPRN PRN ORAL Anxiety and Insomnia 02/05/19 21:00 02/12/19 20:59 02/06/19 20:51 Ceftriaxone Sodium 2 gm/ Dextrose 55 ml @ 110 mls/hr Q24H IVPB 02/06/19 17:30 02/15/19 17:29 02/06/19 17:21 Ondansetron HCl (Zofran) 4 mg Q6H PRN IVP Nausea & Vomiting 02/04/19 18:30 03/06/19 18:29 02/05/19 19:06 Patient Own Medication (Patient's Own Med) 1 ea Q6H PRN ORAL pain 3-5 02/06/19 15:45 03/08/19 15:44 02/06/19 17:19 Sodium Chloride 1,000 ml @ 50 mls/hr Q20H IV 02/05/19 15:30 03/07/19 15:29 02/06/19 15:17 Theo Li M.D. Feb 07, 2019 14:09
--- NOTE | 2019-02-07 14:42 | NUR ---
NURSE NOTES: Discharge instructions reviewed with patient and brother, verbalized understanding. IV discontinued, no active bleeding. All belongings and home medication (Aleve bottle with x1 tablet inside) sent with patient. Instructed patient to call her pharmacy and corn picker her Cipro 500 mg as ordered by Dr. Rawls (he will call in her prescription). Patient ambulated down to lobby with RN, in stable condition. Discharged home at 1442.
--- NOTE | 2019-02-08 04:15 | Discharge Summary ---
DATE OF ADMISSION: 02/04/2019 DATE OF DISCHARGE: 02/07/2019 CHIEF COMPLAINT: Abdominal pain with nausea and vomiting. HOSPITAL COURSE: This is a 68-year-old female with acute onset of right-sided abdominal pain with epigastric pain, nausea, and vomiting for 2 days prior to admission. The patient workup in the hospital showed the patient had urinary tract infection with pyelonephritis. She was started on IV fluid and Rocephin IV for the urinary tract infection and pyelonephritis treatment. ID was consulted during the hospital admission and ID continued the Rocephin and the patient responded to the treatment and she will be going home with the oral Cipro for 11 more days. DISCHARGE DIAGNOSES: Include: 1. Pyelonephritis. 2. Fever, resolved. 3. Possible sepsis with negative blood culture, resolved. 4. Nausea and vomiting, resolved. 5. Anxiety and insomnia. 6. Hyperlipidemia. 7. Headache and chronic dizziness. DISCHARGE MEDICATION: Include Cipro 500 mg one p.o. b.i.d. for 11 more days and we will continue home medications. DISPOSITION: The patient will be discharged to home and the patient will be followed up in my office for open MRI of the brain for dizziness and headache. The patient refused to do MRI in the hospital due to being scared to have a regular MRI and wants open MRI as outpatient. Lucille Cantor M.D. DR: MARCIAL JOB#: [id number] CC: SUMMER
--- NOTE | 2019-02-09 13:30 | Cardiology Report ---
APPROVED REPORT EKG Measurement Heart [id number] Sinus tachycardia Nonspecific T wave abnormality Abnormal ECG
== END 2019-02-07 14:43 | disposition home or self-care (01) | DRG 872 ==
LOC: EMR 16:20 → 3E 16:28 → EDBEDREQ 17:37
DX: A41.9 Sepsis, unspecified organism (principal); N10 Acute pyelonephritis; F41.9 Anxiety disorder, unspecified; G47.00 Insomnia, unspecified; E78.5 Hyperlipidemia, unspecified; R51 Headache; R42 Dizziness and giddiness; G89.29 Other chronic pain; M54.5 Low back pain; B96.20 Unspecified Escherichia coli [E. coli] as the cause of diseases classified elsewhere
CPT/HCPCS: 36415; 71045; 74177; 76770; 80048; 80053; 81003; 83605; 83690; 84484; 85025; 87040; 87086; 87181; 93005; 96365; 96367; 96375; 99285; J2405

== ENCOUNTER 2019-03-24 12:08 | Outpatient (CLI) | payer MEDICARE, MEDICAID ==
[~2019-03-24] VITALS: Ht 152.4 cm; Wt 54.0 kg
[~2019-03-24 12:08] MED LIST changes: +CIPRO500 MG PO; -Isovue-300 100ml vial INJ PRN; -Ketorolac 30mg Inj IV ONE; -Morphine Sulfate 4mg/ml Inj (IV USE ONLY) IVP ONE
[2019-03-24 14:22] VITALS: BP 113/64
--- NOTE | 2019-03-24 20:15 | Consultation ---
DATE OF CONSULTATION: 03/24/2019 CHIEF COMPLAINT: Screening colonoscopy evaluation, chronic constipation, chronic GERD. HISTORY OF PRESENT ILLNESS: This is a 68-year-old female referred to us for screening colonoscopy. Last colonoscopy was 15 years ago. She had one episode of severe urinary tract infection and pyelo for which she was admitted to the hospital. She has been complaining of chronic constipation for over 20 years for which she is taking [id number] medication that is not available in [place]. PAST MEDICAL HISTORY: 1. Skin cancer. 2. Anxiety and depression. 3. Urinary tract infection and pyelo. 4. Hypertension. ALLERGIES: No known allergies. MEDICATIONS: Please see medication reconciliation list. PAST SURGICAL HISTORY: None. SOCIAL HISTORY: The patient denies any tobacco, alcohol, or drug abuse. REVIEW OF SYSTEMS: A 10-point review of systems was performed and positive for constipation. PHYSICAL EXAMINATION: VITAL SIGNS: Temperature 97.8, blood pressure 113/64, pulse 74, respirations 20. HEENT: Normocephalic and atraumatic. Sclerae anicteric. NECK: Supple. No evidence of obvious lymphadenopathy. CARDIOVASCULAR: Regular rate and rhythm. Plus S1 and S2. No obvious murmur. LUNGS: Clear to auscultation bilaterally. ABDOMEN: Positive bowel sounds. Soft and nontender. No rebound. No guarding. No peritoneal sign. EXTREMITIES: No cyanosis. No clubbing. No edema ASSESSMENT AND PLAN: 1. The patient is a 68-year-old female referred to us for screening colonoscopy. Last colonoscopy was over 15 years, we will plan for colonoscopy. 2. Chronic constipation. We will trial of Linzess 145 mcg p.o. daily. The patient was given prescription for 90 day supply. 3. Chronic GERD and prior history of H. pylori infection. We will plan for endoscopy at the same day with the colonoscopy. I want to thank, Dr. Cantor, for this kind referral. Nick Rich M.D. DR: Maynor JOB#: [id number] CC: Lucille Cantor M.D.; Fax#: [phone]
== END 2019-03-24 15:51 | disposition home or self-care (01) ==
LOC: PAN 12:08
DX: K59.09 Other constipation (principal); K21.9 Gastro-esophageal reflux disease without esophagitis; F41.9 Anxiety disorder, unspecified; F32.9 Major depressive disorder, single episode, unspecified; I10 Essential (primary) hypertension; Z85.828 Personal history of other malignant neoplasm of skin; Z87.440 Personal history of urinary (tract) infections

== ENCOUNTER 2019-03-28 09:09 | Day surgery (SDC) | payer MEDICARE, MEDICAID ==
[2019-03-28] VITALS (9 sets, daily range): BP systolic 105–127; BP diastolic 65–80
[~2019-03-28] VITALS: Ht 154.9 cm; Wt 54.0 kg
[2019-03-28] MEDS ORDERED: LR 1000ml 1,000 ML IVLG SCH (10:14)
[2019-03-28] MEDS ORDERED: LR 1000ml ONE (12:00)
[2019-03-28] MEDS ORDERED: Propofol 200mg/20ml IV ONE (12:00)
[2019-03-28] MEDS ORDERED: Lidocaine 1% MPF 10mg/ml 5ml ONE (12:00)
--- NOTE | 2019-03-28 12:02 | Pre-Procedure Note/Attestation ---
Pre-Procedure Note/Attestation Complete Prior to Procedure Planned Procedure: not applicable Procedure Narrative: esophagogastroduodenoscopy and colonoscopy Indications for Procedure Pre-Operative Diagnosis: screening colon, GERD Attestation I attest that I discussed the nature of the procedure; its benefits; risks and complications; and alternatives (and the risks and benefits of such alternatives ), prior to the procedure, with the patient (or the patient's legal kiosk sales representative). I attest that, if there was a reasonable possibility of needing a blood transfusion, the patient (or the patient's legal kiosk sales representative) was given the [facility] standardized written summary, pursuant to the [place] Blood Safety Act ([place] Health and Safety Code # 1645, as amended). I attest that I re-evaluated the patient just prior to the surgery and that there has been no change in the patient's H&P, except as documented below: Nick Rich MD Mar 28, 2019 12:02
--- NOTE | 2019-03-28 12:03 | Short Stay Surgery H&P ---
History of Present Illness History of Present Illness Chief Complaint see recent office consult note HPI Jimena Elder is a 68 year old female who was admitted on for Gerd And Screening Patient History Allergies: Coded Allergies: No Known Allergies (Unverified , 02/04/19) Medication History Scheduled Alprazolam* (Xanax*), 0.5 MG ORAL DAILY, (Reported) Ciprofloxacin* (Cipro*), 500 MG PO BID, (Reported) Meloxicam* (Mobic*), 7.5 MG ORAL DAILY, (Reported) Pitavastatin Calcium (Livalo), 4 MG PO HS, (Reported) Physical Exam Vital Signs Last Vital Signs Date Time Temp Pulse Resp B/P (MAP) Pulse Ox O2 Delivery O2 Flow Rate FiO2 03/28/19 10:41 Room Air 03/28/19 10:13 98.8 75 18 118/67 99 Plan Attestation Are the patient's medical conditions optimized for surgery? Nick Rich MD Mar 28, 2019 12:02
--- NOTE | 2019-03-28 12:17 | Anethesia Preoperative Eval ---
Anesthesia Pre-op PMH/ROS General Date of Evaluation: Mar 28, 2019 Time of Evaluation: 11:50 Anesthesiologist: Fior Haney CRNA ASA Score: ASA 3 Mallampati Score Class I : Soft palate, uvula, fauces, pillars visible Class II: Soft palate, uvula, fauces visible Class III: Soft palate, base of uvula visible Class IV: Only hard plate visible Mallampati Classification: Class II Surgeon: Hilario Diagnosis: GERD, colon screening Surgical Procedure: EGD, colonoscopy with biopsy Anesthesia History: none Family History: no anesthesia problems Allergies: Coded Allergies: No Known Allergies (Unverified , 02/04/19) Medications: see eMAR Patient NPO?: Yes NPO Date: Mar 28, 2019 NPO Time: 00:00 Past Medical History Cardiovascular: Reports: other - hypercholesterolemia; Denies: HTN, CAD, [place], valve dz, arrhythmia Pulmonary: Denies: asthma, COPD, JUSTIN, other Gastrointestinal/Genitourinary: Reports: GERD, other - pyelonephritis; Denies: CRI, ESRD Neurologic/Psychiatric: Reports: depression/anxiety; Denies: dementia, CVA, TIA, other Endocrine: Denies: DM, hypothyroidism, steroids, other HEENT: Denies: cataract (L), cataract (R), glaucoma, [place] (L), [place] (R), other Hematology/Immune: Denies: anemia, DVT, bleeding disorder, other Musculoskeletal/Integumentary: Reports: OA, other - skin CA; Denies: RA, DJD, DDD, edema PMH Narrative: as noted above PSxH Narrative: see H & P Anesthesia Pre-op Phys. Exam Physician Exam Last Vital Signs Date Time Temp Pulse Resp B/P (MAP) Pulse Ox O2 Delivery O2 Flow Rate FiO2 03/28/19 10:41 Room Air 03/28/19 10:13 98.8 75 18 118/67 99 Constitutional: NAD Neurologic: other - alert & oriented Cardiovascular: RRR Respiratory: CTA Gastrointestinal: S/NT/ND Airway Exam Mallampati Score: Class II MO: full Neck: FROM TMD: 3 FB ROM: full Teeth: intact Dentures: no upper, no lower Anesthesia Pre-op A/P Studies Pre-op Studies: EKG - NSR Risk Assessment & Plan Assessment: ASA 3, ok to proceed Plan: MAC Status Change Before Surgery: No Pre-Antibiotics Given Within 1 Hr of Incision: No Fior Haney CRNA Mar 28, 2019 12:17
--- NOTE | 2019-03-28 12:29 | Endoscopy Procedure Note ---
Endoscopy Procedure Note General Indication for Procedure: screening colon, GERD Procedures Performed: EGD, colonoscopy Operative Findings/Diagnosis: gastritis, hemorhoids Specimen: yes Pt Tolerated Procedure Well: Yes Estimated Blood Loss: none Anesthesia Anesthesiologist: fannie Anesthesia: MAC Inserted Devices Implant(s) used?: No Quality Quality of Bowel Preparation: Fair Did scope reach the cecum?: Yes Was there any complications?: No GI Core Measures 50 yrs or older w/o bx or poly: No 10yrs. F/U recommended: Yes If not recommended, why?: Above average risk 18 years or older w/prev. colo: No Nick Rich MD Mar 28, 2019 12:29
--- NOTE | 2019-03-28 12:43 | Immediate Post-Op Evaluation ---
Immediate Post-Op Evalulation Immediate Post-Op Evalulation Procedure: EGD, colonoscopy, polypectomy Date of Evaluation: Mar 28, 2019 Time of Evaluation: 12:40 IV Fluids: LR 800 ml Blood Pressure Systolic: 105 Blood Pressure Diastolic: 71 Pulse Rate: 88 Respiratory Rate: 24 O2 Sat by Pulse Oximetry: 100 Temperature (Fahrenheit): 97.8 Pain Score (1-10): 0 Nausea: No Vomiting: No Complications none Patient Status: awake, reacts, patent Hydration Status: adequate Given Within 1 Hr of Incision: Fior Victor CRNA Mar 28, 2019 12:43
--- NOTE | 2019-03-28 13:20 | 48 Hour Post Anesthesia Eval ---
Post Anesthesia Evaluation Procedure: EGD, colonoscopy, polypectomy Date of Evaluation: Mar 28, 2019 Time of Evaluation: 13:19 Blood Pressure Systolic: 127 0: 75 Pulse Rate: 73 Respiratory Rate: 15 Temperature (Fahrenheit): 97.9 O2 Sat by Pulse Oximetry: 96 Airway: patent Nausea: No Vomiting: No Pain Intensity: 0 Hydration Status: adequate Cardiopulmonary Status: stable Mental Status/LOC: patient returned to baseline Follow-up Care/Observations: per GI Post-Anesthesia Complications: stable Follow-up care needed: N/A Fior Haney CRNA Mar 28, 2019 13:20
--- NOTE | 2019-03-28 17:00 | Procedure Note ---
DATE OF PROCEDURE: 03/28/2019 SURGEON: Nick Rich M.D. PROCEDURE: Upper endoscopy with biopsy and colonoscopy with biopsy. ANESTHESIA: Per Fior RAMÍREZ INSTRUMENT: Olympus adult flexible upper endoscope and colonoscope. INDICATION: 1. Screening colonoscopy evaluation. 2. Chronic GERD. REASON FOR PROCEDURE: The procedure, risks, benefits, and possible consequences, including hemorrhage, aspiration, perforation and infection, and alternative treatments, were explained to the patient/legal guardian by Dr. Nick Rich and the patient/legal guardian understood and accepted these risks. PROCEDURE IN DETAIL: After informed consent was obtained and the patient was adequately sedated, Olympus upper endoscope was advanced from the mouth into second portion of the duodenum and retroflexion was performed in the stomach. The patient had evidence of diffuse gastritis. Random biopsy from antrum and body was obtained to rule out H. pylori infection. Otherwise, the rest of the upper endoscopic examination grossly looked within normal limits. At this time, the upper endoscope was retrieved. The patient was turned over for colonoscopy. First, rectal exam was performed showed positive for large external and internal hemorrhoids. Then, the scope was advanced from rectum into the cecum documented by appendiceal orifice, ileocecal valve, and right upper quadrant palpation. Quality of prep was fair. We had a hard time evaluating left colon. There was about I would say, 10% of the left colon was not examined given this prep. The patient had evidence of diffuse melanosis coli. The patient had one diminutive polyp in the rectosigmoid area, removed with the cold biopsy forceps technique. Retroflexion of rectum showed evidence of large internal hemorrhoids. SUMMARY OF FINDINGS: 1. Gastritis, status post biopsy, rule out H. pylori infection. 2. Internal and external hemorrhoids, large. 3. Melanosis coli. 4. One colonic polyp removed, see above for details. 5. Fair colonic prep. RECOMMENDATIONS: 1. Follow pathology. 2. We recommend repeat colonoscopy no later than 5 years. Nick Rich M.D. DR: Maynor JOB#: [id number] CC:
== END 2019-03-28 13:50 | disposition home or self-care (01) ==
LOC: GAS 09:09
DX: Z12.11 Encounter for screening for malignant neoplasm of colon (principal); K21.9 Gastro-esophageal reflux disease without esophagitis; K64.4 Residual hemorrhoidal skin tags; K64.8 Other hemorrhoids; K63.89 Other specified diseases of intestine; K63.5 Polyp of colon; K29.50 Unspecified chronic gastritis without bleeding
CPT/HCPCS: 43239; 45380; J2704; 94003; 94150